=== PATIENT | female | born 1965 | race Caucasian/White ===

== ENCOUNTER → 2024-05-23 07:23 | Outpatient (CLI) | payer OTHER, SELFPAY ==
[2024-05-23 08:11] LABS: Add Manual Diff / Slide Review NO; Basophils Absolute Auto 100 /uL (0-100); Basophils Percent Auto 1.9 % (0-2); Eosinophils Absolute Auto 100 /uL (0-450); Eosinophils Percent Auto 1.8 % (2-4); Hematocrit 43.4 % (36-46); Hemoglobin 14.9 g/dL (12.0-16.0); Lymphocytes Absolute Auto 1500 /uL (1100-4500); Lymphocytes Percent Auto 42.5 % (25-40); Mean Corpuscular HGB Conc 34.4 % (30-36); Mean Corpuscular Hemoglobin 31.5 PG (26-34); Mean Corpuscular Volume 91.7 fL (80-100); Monocytes Absolute Auto 300 /uL (0-900); Monocytes Percent Auto 9.4 % (3-14); Neutrophils Absolute Auto 1500 /uL (1500-7000); Neutrophils Percent Auto 44.4 % (50-75); Platelet Count 222 X10^3/uL (150-400); Red Blood Cell Count 4.73 X10^6/uL (4.0-5.2); Red Cell Distribution Width 13.4 % (11.6-14.8); White Blood Cell Count 3.4 X10^3/uL (4.5-11.0)
[2024-05-23 08:26] LABS: Alanine Aminotransferase 37 IU/L (<35); Albumin 4.3 g/dL (3.5-5.0); Albumin Globulin Ratio 1.5 (1.0-2.8); Alkaline Phosphatase 96 U/L (38-126); Aspartate Aminotransferase 40 IU/L (14-36); BUN Creatinine Ratio 17.2 (6-22); Bilirubin Total 0.7 mg/dL (0.2-1.3); Blood Urea Nitrogen 17 mg/dL (7-17); Calcium 9.6 mg/dL (8.4-10.2); Carbon Dioxide 28 mmol/L (22-32); Chloride 108 mmol/L (98-107); Cholesterol 162 mg/dL (140-199); Estimated Glomerular Filt Rate > 60 mL/min (>60); Globulin 2.9 g/dL (1.7-4.1); Glucose 110 mg/dL (70-100); HDL Cholesterol 58 mg/dL (40-60); HEMOLYSIS < 15 (0-50); LDL Cholesterol Calculated 89 mg/dL (<100); Potassium 4.3 mmol/L (3.4-5.1); Sodium 140 mmol/L (137-145); Total Protein 7.2 g/dL (6.3-8.2); Triglycerides 73 mg/dL (35-150)
[2024-05-23 08:30] LABS: Hemoglobin A1C% w Est Avg Glu 5.8 % (4.0-6.0)
== END ==
LOC: LAB 07:24
PROVIDERS: PCP Family Medicine; Referring Provider Family Medicine; Visit Provider Family Medicine
DX: R73.03 Prediabetes (principal); I50.20 Unspecified systolic (congestive) heart failure; G47.30 Sleep apnea, unspecified
CPT/HCPCS: 36415; 80053; 80061; 83036; 85025

== ENCOUNTER → 2024-06-20 08:33 | Outpatient (CLI) | payer OTHER, SELFPAY ==
--- NOTE | 2024-06-20 08:34 | DI.CT.S_ITS ---
PROCEDURE: CT ANGIO CHEST PE PROTOCOL INDICATIONS: concern for PE, CP and SOB, h/o breast cancer TECHNIQUE: After the administration of intravenous contrast, 2 mm thick sections acquired from the pulmonary apices to the posterior costophrenic angles. 3-dimensional maximum intensity projection (MIP) coronal and sagittal reformats were then acquired through the thorax. For radiation dose reduction, the following was used: automated exposure control, adjustment of mA and/or kV according to patient size. COMPARISON: None. FINDINGS: Image quality: Diagnostic. Pulmonary arteries: Pulmonary arteries are normal in size, and demonstrate no intraluminal filling defects to suggest central pulmonary embolism. Lower Neck: No enlarged lymph nodes. Thyroid: No thyroid nodules which require sonographic follow up, per consensus guidelines. Axillae: No enlarged lymph nodes. Chest Wall: Unremarkable. Bones: Unremarkable. Lungs and Pleura: No pneumothorax or pleural effusions. No consolidation or suspicious nodules. Calcified granuloma, right lower lobe. Patchy bibasilar atelectasis. On the left, atelectasis involves both the basilar portion of the left lower lobe as well as the inferior aspect of the lingula of the left upper lobe. On the right, it involves both the basilar portion of the right lower lobe as well as the inferior medial right middle lobe. Heart: Heart size is normal. No pericardial effusion. Thoracic Vessels: No aortic aneurysm. Mediastinum and Maryann: No enlarged lymph nodes. Esophagus: No wall thickening. No hiatal hernia. Upper Abdomen: Multiple bilateral nonobstructing renal stones are noted. IMPRESSION: 1. No acute pulmonary emboli. 2. Patchy bibasilar atelectasis. 3. Note made of bilateral nephrolithiasis. Dictated by: Terry Ibrahim M.D. on 06/20/2024 at 10:48 Approved by: Terry Ibrahim M.D. on 06/20/2024 at 10:50
== END ==
PROVIDERS: PCP Family Medicine; Referring Provider Family Medicine; Visit Provider Family Medicine
DX: J98.11 Atelectasis (principal); R07.9 Chest pain, unspecified; N20.0 Calculus of kidney
CPT/HCPCS: 71275; Q9967

== ENCOUNTER 2024-08-25 07:16 | Day surgery (SDC) | payer OTHER, SELFPAY ==
[2024-08-25 07:55] VITALS: BP 120/89; PULSE 78; RESP 16; TEMP 36.4; O2SAT 99
[2024-08-25] MEDS: LACTATED RINGERS 1,000 ML 42 ML IV (08:16)
--- NOTE | 2024-08-25 08:32 | P.HP_ITS ---
History of Present Illness History of Present Illness Date Patient Seen: 08/25/24 Time Patient Seen: 08:32 Chief complaint: Screening Colonoscopy Narrative: Daniella is a 59-year-old woman who presents for a colonoscopy. She last had a colonoscopy about 5 years ago and polyps were removed. [facility] Medical History (Updated 08/25/24 @ 08:32 by Lavon Womack MD) Fever Sleep apnea (~2013) Allergies Abnormal chest xray Depression (~1989) Seizures (~2012) Migraines (~1976) Mumps Measles Chicken pox Painful menstrual periods (~1976) Human papilloma virus (~2017) Heavy menstrual period (~1976) Kidney stones (~2016) CHEK2 positive Cardiac arrhythmia Breast cancer (~2019) Surgical History (Updated 04/07/24 @ 19:59 by Elida Smallwood) Anesthesia History of lumpectomy of left breast (~2019) History of rhinoplasty (~1983) History of section Family History (Updated 04/07/24 @ 20:03 by Elida Smallwood) Father COPD (chronic obstructive pulmonary disease) Mother Myocardial infarction Brother History of heart disease Hyperlipidemia Hypertension Mental health problem Grandfather Myocardial infarction Grandmother Stroke Grandfather Myocardial infarction Grandmother Cancer Family/Other Mental health problem Family/Other Mental health problem Social History Smoking Status: Former smoker alcohol intake: current Meds Home Medications and Allergies Home Medications Medication Instructions Recorded Confirmed Type anastrozole 1 mg tablet 1 mg PO DAILY 06/20/24 08/25/24 History atorvastatin 20 mg tablet 20 mg PO DAILY 06/20/24 08/25/24 History clopidogrel 75 mg tablet 75 mg PO DAILY 06/20/24 08/25/24 History empagliflozin 10 mg tablet 10 mg PO DAILY 06/20/24 08/25/24 History (Jardiance) eplerenone 25 mg tablet 25 mg PO DAILY 06/20/24 08/25/24 History metoprolol tartrate 25 mg tablet 12.5 mg PO DAILY 06/20/24 08/25/24 History sacubitril 24 mg-valsartan 26 mg 1 tab PO BID 06/20/24 08/25/24 History tablet (Entresto) venlafaxine 37.5 mg tablet 37.5 mg PO DAILY 06/20/24 08/25/24 History venlafaxine 75 mg tablet 75 mg PO DAILY 06/20/24 06/20/24 History Allergies Allergy/AdvReac Type Severity Reaction Status Date / Time No Known Drug Allergies Allergy Verified 08/25/24 07:50 Exam Vital Signs (past 8 hours): - 08/25/24 07:55 Temperature 97.6 F Pulse Rate 78 Respiratory Rate 16 Blood Pressure 120/89 Pulse Oximetry 99 Oxygen Delivery Method Room Air Oxygen Delivery Method Room Air Const General: No acute distress Resp Effort & Inspection: normal respiratory effort Assessment & Plan Assessment and plan (1) History of colon polyps: Status: Acute Plan Proceed with colonoscopy for personal history of polyps. Time-Based Coding :: [TOTAL MINUTES] spent with patient and on the chart (including review of chart, obtaining history, exam, reviewing outside data, placing orders, documenting e xam and treatment plan, and counseling patient) on [DATE].
[2024-08-25 08:57] VITALS: BP 110/78; PULSE 75; RESP 16; O2SAT 98
--- NOTE | 2024-08-25 08:58 | PM.OP.COLON ---
Operative Date/Time/Diagnoses Date of procedure: 08/25/24 Time of procedure: 08:58 Pre-op diagnosis: History of colon polyps Post-op diagnosis: same Procedure & Clinicians Study performed: Colonoscopy Same procedure as scheduled: Yes Surgeon: Lavon Womack Procedure Notes Procedure in detail: Surgeon: Lavon Womack MD Anesthesia: Sandra Albarado CRNA Procedure: The patient was brought to the endoscopy suite, placed in left lateral decubitus position. The patient was connected to monitoring devices. A time-out was performed. Sedation was administered. Once the patient was adequately sedated, a digital rectal exam was performed and was normal. The scope was then inserted and advanced to the cecum where the appendiceal orifice was identified and photographed. The scope was then slowly withdrawn over greater than 6 minutes. The mucosa was thoroughly inspected. No abnormalities were found. The scope was retroflexed in the rectum. The scope was straightened and removed. The patient was awakened and brought to recovery. Scope withdrawal time: 7 minutes Sedation time: 13 minutes EBL: 0 Findings: Normal colon Post-procedure Recommendations: Colonoscopy in 10 years Disposition: PACU
[2024-08-25 08:59] VITALS: BP 114/78; PULSE 73; RESP 16; TEMP 36.2; O2SAT 98
[2024-08-25 09:04] VITALS: BP 120/72; PULSE 70; RESP 15; TEMP 36.4; O2SAT 98
== END 2024-08-25 09:16 | disposition home or self-care (01) ==
PROVIDERS: PCP Family Medicine; Referring Provider Surgery; Visit Provider Surgery
PROC: 0DJD8ZZ Inspection of Lower Intestinal Tract, Via Natural or Artificial Opening Endoscopic (ICD-10-PCS; CPT 45378; principal; 2024-08-25 08:45)
DX: Z12.11 Encounter for screening for malignant neoplasm of colon (principal); Z86.010 Personal history of colon polyps
CPT/HCPCS: 45378; J2704

== ENCOUNTER → 2024-09-23 08:16 | Outpatient (CLI) | payer OTHER, SELFPAY ==
[2024-09-23 09:37] LABS: Add Manual Diff / Slide Review NO; Basophils Absolute Auto 100 /uL (0-100); Basophils Percent Auto 1.4 % (0-2); Eosinophils Absolute Auto 100 /uL (0-450); Hemoglobin 14.9 g/dL (12.0-16.0); Lymphocytes Absolute Auto 1300 /uL (1100-4500); Lymphocytes Percent Auto 32.8 % (25-40); Mean Corpuscular HGB Conc 33.7 % (30-36); Mean Corpuscular Hemoglobin 31.4 PG (26-34); Mean Corpuscular Volume 92.9 fL (80-100); Monocytes Absolute Auto 300 /uL (0-900); Monocytes Percent Auto 7.7 % (3-14); Neutrophils Absolute Auto 2300 /uL (1500-7000); Neutrophils Percent Auto 56.1 % (50-75); Platelet Count 257 X10^3/uL (150-400); Red Blood Cell Count 4.74 X10^6/uL (4.0-5.2); Red Cell Distribution Width 13.3 % (11.6-14.8)
[2024-09-23 09:58] LABS: Alanine Aminotransferase 29 IU/L (<35); Albumin 4.3 g/dL (3.5-5.0); Albumin Globulin Ratio 1.5 (1.0-2.8); Alkaline Phosphatase 84 U/L (38-126); Aspartate Aminotransferase 27 IU/L (14-36); BUN Creatinine Ratio 16.9 (6-22); Bilirubin Total 0.7 mg/dL (0.2-1.3); Blood Urea Nitrogen 15 mg/dL (7-17); Calcium 9.8 mg/dL (8.4-10.2); Carbon Dioxide 26 mmol/L (22-32); Chloride 107 mmol/L (98-107); Estimated Glomerular Filt Rate > 60 mL/min (>60); Globulin 2.8 g/dL (1.7-4.1); Glucose 100 mg/dL (80-110); HEMOLYSIS < 15 (0-50); Potassium 4.5 mmol/L (3.4-5.1); Sodium 140 mmol/L (137-145); Total Protein 7.1 g/dL (6.3-8.2)
== END ==
PROVIDERS: PCP Family Medicine; Referring Provider Family Medicine; Visit Provider Family Medicine
DX: C50.919 Malignant neoplasm of unspecified site of unspecified female breast (principal); I50.20 Unspecified systolic (congestive) heart failure; R07.9 Chest pain, unspecified; D72.818 Other decreased white blood cell count; R79.89 Other specified abnormal findings of blood chemistry
CPT/HCPCS: 36415; 80053; 85025

== ENCOUNTER → 2025-01-02 07:03 | Outpatient (CLI) | payer OTHER, SELFPAY ==
[2025-01-02 07:45] LABS: Hematocrit 44.3 % (36-46); Mean Corpuscular HGB Conc 33.9 % (30-36); Mean Corpuscular Hemoglobin 31.5 PG (26-34); Mean Corpuscular Volume 92.8 fL (80-100); Platelet Count 239 X10^3/uL (150-400); Red Blood Cell Count 4.78 X10^6/uL (4.0-5.2); Red Cell Distribution Width 13.3 % (11.6-14.8); White Blood Cell Count 4.2 X10^3/uL (4.5-11.0)
[2025-01-02 10:42] LABS: Neutrophils Absolute Manual 2142 /uL (3000-5900); RBC Morphology Normal Morphology; Total Cells Counted 100
== END ==
PROVIDERS: PCP Family Medicine; Referring Provider Family Medicine; Visit Provider Family Medicine
DX: D72.818 Other decreased white blood cell count (principal)
CPT/HCPCS: 36415; 85025

== ENCOUNTER → 2025-04-09 14:42 | Outpatient (CLI) | payer OTHER, SELFPAY ==
--- NOTE | 2025-04-09 14:45 | DI.RAD.S_ITS ---
PROCEDURE: XR ANKLE RT MIN 3V INDICATIONS: Right ankle injury and pain TECHNIQUE: 3 views of the ankle were acquired. COMPARISON: None. FINDINGS: Bones: Nondisplaced fracture of the fibular tip. No other fractures seen. Ankle mortise remains intact. Soft tissues: Small tibiotalar joint effusion. Normal Achilles tendon. Mild lateral periarticular soft tissue swelling. IMPRESSION: Nondisplaced distal fibular fracture. Dictated by: Dari García M.D. on 04/09/2025 at 15:06 Approved by: Dari García M.D. on 04/09/2025 at 15:07
== END ==
PROVIDERS: PCP Family Medicine; Referring Provider Physician Assistant Surgical; Visit Provider Physician Assistant Surgical
DX: S82.831A Other fracture of upper and lower end of right fibula, initial encounter for closed fracture (principal); X58.XXXA Exposure to other specified factors, initial encounter
CPT/HCPCS: 73610

== ENCOUNTER → 2025-04-25 16:23 | Outpatient (CLI) | payer OTHER, SELFPAY ==
[2025-04-25 18:07] LABS: Add Manual Diff / Slide Review NO; Basophils Absolute Auto 100 /uL (0-100); Basophils Percent Auto 1.2 % (0-2); Eosinophils Absolute Auto 100 /uL (0-450); Eosinophils Percent Auto 1.4 % (2-4); Hematocrit 42.6 % (36-46); Hemoglobin 14.7 g/dL (12.0-16.0); Lymphocytes Absolute Auto 1700 /uL (1100-4500); Lymphocytes Percent Auto 35.4 % (25-40); Mean Corpuscular HGB Conc 34.6 % (30-36); Mean Corpuscular Hemoglobin 31.8 PG (26-34); Mean Corpuscular Volume 91.8 fL (80-100); Monocytes Absolute Auto 400 /uL (0-900); Monocytes Percent Auto 8.2 % (3-14); Neutrophils Absolute Auto 2500 /uL (1500-7000); Neutrophils Percent Auto 53.8 % (50-75); Platelet Count 270 X10^3/uL (150-400); Red Blood Cell Count 4.64 X10^6/uL (4.0-5.2); Red Cell Distribution Width 13.3 % (11.6-14.8); White Blood Cell Count 4.7 X10^3/uL (4.5-11.0)
[2025-04-25 18:20] LABS: Alanine Aminotransferase 35 IU/L (<35); Albumin 4.6 g/dL (3.5-5.0); Albumin Globulin Ratio 1.5 (1.0-2.8); Alkaline Phosphatase 79 U/L (38-126); Aspartate Aminotransferase 29 IU/L (14-36); Blood Urea Nitrogen 18 mg/dL (7-17); Carbon Dioxide 25 mmol/L (22-32); Chloride 105 mmol/L (98-107); Cholesterol 200 mg/dL (140-199); Estimated Glomerular Filt Rate > 60 mL/min (>60); Glucose 87 mg/dL (70-99); HDL Cholesterol 53 mg/dL (40-60); HEMOLYSIS < 15 (0-50); LDL Cholesterol Calculated 124 mg/dL (<100); Potassium 4.6 mmol/L (3.4-5.1); Sodium 139 mmol/L (137-145); Total Protein 7.6 g/dL (6.3-8.2); Triglycerides 113 mg/dL (35-150)
[2025-04-25 18:37] LABS: Vitamin D 25 Hydroxy (D3) 33.2 ng/mL (30.0-100.0)
[2025-04-25 18:52] LABS: TSH w/ Reflex to FT4 2.22 uIU/mL (0.47-4.68)
[2025-04-27 07:09] LABS: Parathyroid Hormone Int 58 pg/mL (15-65)
== END ==
PROVIDERS: PCP Family Medicine; Referring Provider Internal Medicine; Visit Provider Internal Medicine
DX: I50.22 Chronic systolic (congestive) heart failure (principal); R79.89 Other specified abnormal findings of blood chemistry; D72.819 Decreased white blood cell count, unspecified; R63.5 Abnormal weight gain; Z83.49 Family history of other endocrine, nutritional and metabolic diseases; S82.64XA Nondisplaced fracture of lateral malleolus of right fibula, initial encounter for closed fracture; Z68.31 Body mass index [BMI] 31.0-31.9, adult
CPT/HCPCS: 36415; 73610; 80053; 80061; 82306; 83970; 84443; 85025; 99213

== ENCOUNTER → 2025-08-21 07:43 | Outpatient (CLI) | payer OTHER, SELFPAY ==
--- NOTE | 2025-08-21 07:44 | DI.MG.S_ITS ---
MM screening mammo BI: 08/21/2025. BI-RADS: 2 CLINICAL: 60-year old female for bilateral screening mammogram. No Tyrer-Cuzick risk score calculation due to the patient's personal history of breast cancer. Patient reports a history of left breast carcinoma diagnosed at age 54. Status-post left lumpectomy with chemotherapy. No first-degree family history of breast cancer. Current reported family history of breast cancer: maternal aunt. Patient was diagnosed within the last 5 years. The patient had a prior left breast biopsy. PRIOR EXAMS 08/22/2024, 08/15/2024, 11/02/2023, 10/15/2023, 08/20/2022. MAMMOGRAPHY TECHNIQUE: 2D and 3D (tomosynthesis) digital mammographic views obtained, with additional images as needed for full coverage. Current study was also evaluated with a Computer Aided Detection (CAD) system. DENSITY B. There are scattered areas of fibroglandular density. MAMMOGRAPHY FINDINGS Right: No suspicious mass, asymmetry, microcalcification, or other abnormality seen. Left An implanted medical laboratory technical officer obscures a portion of the breast/axilla. Benign-appearing post-surgical changes noted on the left. There are no suspicious masses, calcifications, or other findings in the breast. IMPRESSION: Right * No evidence of malignancy. Left * No evidence of malignancy with benign findings. RECOMMENDATIONS Bilateral * Annual screening mammography. OVERALL ASSESSMENT CATEGORY BI-RADS-2: Benign. The [employer] recommends annual screening mammography beginning at age 40 for women with average risk of breast cancer. ELECTRONICALLY SIGNED: Valery Driscoll M.D. on 08/21/2025 at 05:40:38 PM PT Interpreting Station ID: [id number]
== END ==
PROVIDERS: PCP Family Medicine; Referring Provider Family Medicine; Visit Provider Family Medicine
DX: Z12.31 Encounter for screening mammogram for malignant neoplasm of breast (principal); Z85.3 Personal history of malignant neoplasm of breast; Z80.3 Family history of malignant neoplasm of breast
CPT/HCPCS: 77063; 77067

== ENCOUNTER → 2025-10-03 12:09 | Outpatient (CLI) | payer OTHER, SELFPAY ==
--- NOTE | 2025-10-03 12:10 | DI.RAD.S_ITS ---
PROCEDURE: XR DEXA AXIAL SKELETON INDICATIONS: Osteoporosis Screening COMPARISON: None. FINDINGS: Lumbar Spine: Bone mineral density is 0.923 g/cm2, T score -1.4, osteopenia. Left Femoral Neck: Bone mineral density 0.729 g/cm2, T score -1.1. Left Hip: Bone mineral density 0.96 not in g/cm2, T score 0.2, osteopenia by neck. Measurement. Fracture Risk Calculation (when applicable): 10-year fracture risk of a major osteoporotic fracture 12 percent and of a hip fracture 0.8 percent. (T score greater or equal to -1.0 to: NORMAL) (T score from -1.1 to -2.4: OSTEOPENIA) (T score less than or equal to -2.5: OSTEOPOROSIS) IMPRESSION: Osteopenia by left femoral neck and lumbar spine measurements. Follow-up guidelines as follows: Osteoporosis: Consider a repeat DEXA and Vertebral Fracture Assessment (VFA) exam in 2 years or sooner if medically necessary, to reassess this patient's status. Osteopenia: Consider a repeat DEXA in 2-3 years to reassess this patient's status, or if there is a new clinical indication. Normal: Consider a repeat DEXA in 5 years or sooner, or if there is a new clinical indication. All treatment decisions require clinical judgment and consideration of individual patient factors, including patient preferences, comorbidities, previous drug use, risk factors not captured in the FRAX model (e.g., frailty, falls, vitamin D deficiency, increased bone turnover, interval significant decline in bone density ) and possible under- or over-estimation of fracture risk by FRAX. In addition, the NOF Guide recommends that FDA-approved medical therapies be considered in postmenopausal women and men age >= 50 years with a: * Hip or vertebral (clinical or morphometric) fracture * T-score of <=-2.5 at the spine or hip * Ten-year fracture probability by FRAX of >= 3% for hip fracture or >=20% for major osteoporotic fracture. Dictated by: Michael Gonzalez M.D. on 10/03/2025 at 13:59 Approved by: Michael Gonzalez M.D. on 10/03/2025 at 14:03
== END ==
LOC: RAD 12:10
PROVIDERS: PCP Family Medicine; Referring Provider Internal Medicine; Visit Provider Internal Medicine
DX: C50.912 Malignant neoplasm of unspecified site of left female breast (principal); M85.89 Other specified disorders of bone density and structure, multiple sites; Z17.0 Estrogen receptor positive status [ER+]
CPT/HCPCS: 77080